=== PATIENT | female | born 1990 | race Two or more races ===

== ENCOUNTER 2025-02-13 11:05 | Emergency (ER) | payer MEDICAID, SELFPAY ==
--- NOTE | 2025-02-13 11:41 | XR_ITS ---
Examination: Complete OB ultrasound, less than 14 weeks, transabdominal Date and time of exam: February 13, 2025 1216 hours INDICATIONS: Vaginal bleeding today, pelvic cramping today Technique: Obstetrical ultrasound images less than 14 weeks performed via transabdominal imaging Findings: A normal shaped single intrauterine gestation is present in the uterus. pole 3.9 cm corresponds to 10 week 6 day gestational age Cardiac motion 164 BPM Ultrasonographic survey of visible and placental structures unremarkable. Amniotic fluid volume appears appropriate for this estimated gestational age. Right ovary 3.3 cm arterial flow Left ovary obscured by bowel gas IMPRESSION: Viable intrauterine gestation 10 weeks 6 days.
--- NOTE | 2025-02-13 11:41 | PD.EDRME ---
Rapid Medical Screening Exam RME Arrival date/time: 02/13/25 11:05 34-year-old female approximately weeks presents emergency department today for complaints of pelvic pain Chief Complaint: OB/Uterine Contractions Time Seen by Provider: 02/13/25 11:41
[2025-02-13 11:43] VITALS: BP 126/82; PULSE 76; RESP 18; TEMP 37.1; O2SAT 98
[2025-02-13 12:21] LABS: Basophils % (Auto) 0 % (0-2.5); Eosinophils # (Auto) 0.1 Thou/mm3 (0.0-0.5); Eosinophils % (Auto) 1 % (0-10); Hematocrit 38.7 % (36.0-46.0); Hemoglobin 13.5 g/dL (12.0-16.0); Immature Granulocytes % (Auto) 0 % (0-0); Immature Granulocytes Auto 0.02 Thou/mm3 (0.00-0.00); Lymphocytes # (Auto) 1.6 Thou/mm3 (1.0-4.8); Lymphocytes % (Auto) 19 % (10-50); Mean Corpuscular HGB Conc 34.9 g/dl (31.0-37.0); Mean Corpuscular Hemoglobin 30.7 pg (25.0-35.0); Mean Corpuscular Volume 88 fL (80-100); Monocytes # (Auto) 0.5 Thou/mm3 (0.0-0.8); Monocytes % (Auto) 6 % (0-12); Neutrophils # (Auto) 6.3 Thou/mm3 (1.8-7.7); Neutrophils % (Auto) 73 % (37-80); Nucleated Red Blood Cell % 0 /100 WBC (0); Platelet Count 253 Thou/mm3 (140-440); RDW Standard Deviation 40.8 fL (36.4-46.3); White Blood Count 8.6 Thou/mm3 (3.6-11.0)
[2025-02-13 12:42] LABS: Alanine Aminotransferase 10 U/L (10-49); Albumin, Serum 4.4 gm/dL (3.5-5.0); Albumin/Globulin Ratio 1.6 (1.2-2.2); Alkaline Phosphatase 83 U/L (46-116); Anion Gap 10 (7-16); Aspartate Amino Transferase 15 U/L (0-34); BUN/Creatinine Ratio 16 Ratio (12-20); Bilirubin,Total 0.5 mg/dL (0.3-1.2); Blood Urea Nitrogen 11 mg/dL (9-23); Calcium 9.5 mg/dL (8.3-10.6); Calcium (Corrected) 9.5 mg/dL (8.5-10.1); Carbon Dioxide 23.7 mMol/L (20.0-31.0); Chloride 103 mMol/L (98-107); Creatinine (Component) 0.7 mg/dL (0.6-1.3); Globulin 2.7 gm/dL (2.3-3.5); Glucose 85 mg/dL (74-106); Osmolality,Calculated 272 (275-295); Potassium 3.5 mMol/L (3.4-5.1); Sodium 137 mMol/L (136-145); Total Protein 7.1 gm/dL (5.7-8.2); eGFR > 60 See Note
[2025-02-13 12:45] LABS: Collection Type, Urine Clean Catch
[2025-02-13 13:03] LABS: Bacteria,Urine Rare; Bilirubin,Urine Negative (Negative); Blood,Urine 1+ (Negative); Budding Yeast,Urine Present; Clarity,Urine Clear (Clear/Hazy); Color,Urine Yellow (Lt Yel-Yel); Glucose, Urine 2+ (Negative); Ketones,Urine Negative (Negative); Leukocyte Esterase,Urine Negative (Negative); Nitrite,Urine Negative (Negative); PH,Urine 6.5 (5.0-7.0); Protein,Urine Trace (Neg - Trace); RBC,Urine 13 /hpf (0-3); Specific Gravity,Urine 1.027 (1.001-1.035); Squamous Epithelial Cell,Urine 4 /hpf (0-5); Urobilinogen,Urine Negative mg/dL (0.0-1.0); WBC,Urine 2 /hpf (0-5)
[2025-02-13 13:19] LABS: Beta HCG,Quantitative 79774 mIU/mL (<5.0)
[2025-02-13 19:39] VITALS: BP 125/75; PULSE 70; RESP 16; TEMP 36.9; O2SAT 99
--- NOTE | 2025-02-13 19:52 | PD.EDPREG ---
ED OB Contraction Preg RMI/HPI General Chief complaint: OB/Uterine Contractions Stated complaint: PREG 11 WKS, SPOTTING/CRAMPING STARTED LAST NIGHT Time Seen by Provider: 02/13/25 11:41 Arrival date/time: 02/13/25 11:05 RME / HPI RME / HPI Narrative: 02/13/25 11:05 34-year-old female approximately weeks presents emergency department today for complaints of pelvic pain ------- Dr. Liang?s Main ED Evaluation: 34yo female who is ~11 weeks gestation presents to the ED for complaints of lower abdominal pain and vaginal spotting. Patient states she started having mild vaginal spotting and lower abdominal cramping yesterday. She reports associated sweating, lightheadedness, and blurry vision and was concerned, so she came in for evaluation. Patient denies any fever, chills or any other associated symptoms. Patient has her first appointment with her OB on 02/27/25. Related Data Home Medications ?Medication ?Instructions ?Recorded ?Confirmed prenat.vits,paul,[id number] 1 tab PO QDAY 12/14/22 12/14/22 Previous Rx's ?Medication ?Instructions ?Recorded acetaminophen 500 mg capsule 1,000 mg (2 x 500 mg) PO Q6H PRN 02/13/25 pain #30 caps Allergies Allergy/AdvReac Type Severity Reaction Status Date / Time No Known Allergies Allergy Verified 02/13/25 11:09 Review of Systems Review of Systems Systems Reviewed: All systems reviewed, normal except as documented Past Medical History Past Medical History NEUROLOGIC: Negative Neurological Disorders CARDIAC: Negative Cardiac Disorders, Myocardial Infarction, Cardiac Arrhythmia, Atrial Fibrillation, Angina, Heart Murmur, Coronary Artery Disease, Atherosclerotic Heart Disease, Peripheral Vascular Disease, Hypercholesterolemia, Aneurysm, Congestive Heart Failure, Congenital Heart Disease, Valvular Heart Disease, Rheumatic Fever, Cardiomyopathy, Edema, Pericarditis, Cellulitis, Deep Vein Thrombosis, Hypertension, Hypotension or Varicose Veins RESPIRATORY: Negative Chronic Obstructive Pulmonary Disease (COPD) GASTROINTESTINAL: Negative Gastrointestinal Disorders or Hepatitis GENITOURINARY: Negative Genitourinary Disorders or Renal Disease REPRODUCTIVE: Negative Pelvic Inflammatory Disease MUSCULOSKELETAL: Negative Musculoskeletal Disorders ENDOCRINE: Negative Endocrine Disorders, Diabetes Mellitus Type 1, Diabetes Mellitus Type 2, Ria's Syndrome, Colmesneil's Disease or Adrenal Disease HEMATOLOGIC: Negative Blood Disorders OTHER HISTORY: Negative Autoimmune Disease, Anesthesia Reactions, Organ Transplant, MRSA, VRSA, Vancomycin-Resistant Enterococci, Human Immunodeficiency Virus (HIV), Chicken Pox, Measles, Mumps, Rubella (Bengali Measles), Pertussis, Clostridium Difficile or Cancer Family History FAMILY HISTORY: Negative Family Psychiatric Problems, Family Respiratory Disorders, Family Cardiac Disorders, Family Gastrointestinal Problems, Family Cancer, Family Surgery or Family Anesthesia Reaction Surgical History SURGICAL: Negative Cardiac Surgery, Pacemaker, Endocrine Surgery, Ear Surgery, Abdominal Surgery, Nephrectomy, Joint Replacement, Neurologic Surgery, Mastectomy, Section or Organ Transplant Social History SMOKING STATUS: Never smoker SECOND HAND EXPOSURE: No ED Exam Narrative Physical exam: GENERAL APPEARANCE: alert and oriented x 4, well-developed, well-nourished, no acute distress VITALS: All vitals were reviewed and the pulse ox is 99% on room air, which is normal according to my interpretation. HEENT: Normocephalic, atraumatic; pupils equal, round, reactive to light; EOMI; mucous membranes pink, moist; oropharynx clear NECK: Supple LUNGS: CTABL; no wheezes, no rales, no rhonchi HEART: Regular rate, regular rhythm; normal S1, S2; no murmurs ABDOMEN: non distended; normal BS; soft, no tenderness, no guarding, no rebound; no masses, no organomegaly, no hernia BACK: no CVA tenderness EXTREMITIES: atraumatic; no edema NEUROLOGIC: awake; alert and oriented x4; cranial nerves II-XII grossly intact; no focal sensory or motor deficits PSYCHIATRIC: appropriate mood and affect SKIN: warm, dry, normal color; no rashes Course Quality Measures none Orders Category Date Time Status US OB <= 14 weeks fetus Stat Exams 02/13/25 11:41 Completed ABO/RH Type Stat Lab 02/13/25 11:52 Completed Beta HCG,Quantitative Stat Lab 02/13/25 11:52 Completed CBC Stat Lab 02/13/25 11:52 Completed Comprehensive Metabolic Panel Stat Lab 02/13/25 11:52 Completed UA [Urinalysis] Stat Lab 02/13/25 12:37 Completed Urine Culture Stat Lab 02/13/25 12:37 Received Vital Signs Vital signs: Vital Signs Temperature 98.8 F 02/13/25 11:43 Pulse Rate 76 02/13/25 11:43 Respiratory Rate 18 02/13/25 11:43 Blood Pressure 126/82 02/13/25 11:43 Pulse Oximetry (%) 98 02/13/25 11:43 Oxygen Delivery Method Room Air 02/13/25 11:43 OB/Uterine Contractions MDM Narrative MDM Narrative:: Scribe Attestation: 02/13/25 - Chanda Joshua am scribing for and in the presence of Dr. Liang. Patient data External records reviewed:: [facility] previous records (Per chart review, patient has no relevant previous ED visits.) Clinical information provided by:: patient Social determinants that could affect healthcare access:: none Patient has the following chronic illnesses:: none How is presenting disease/condition affected by chronic disease/condition?: no chronic disease Evaluation data The following diagnostics were reviewed and interpreted by me:: lab results and radiology exam(s) Lab and/or radiology exams considered but not ordered:: none Interpretation Summary: CBC is normal, CMP is normal, UA shows 2+ glucose and 1+ [place] [address], according to my interpretation. -------- [facility] Report Signed Patient: [facility]. Record#: [id number] Birthdate: 1990 Age/Sex: 34 / F Location: [facility] Attending Dr: Ordering Physician: Chanda GATES)Pa NP Date of Service: 02/13/25 Procedure(s): US OB <= 14 weeks fetus Accession Number(s): [id number] cc: Chanda GATES),Pa KINCAID; Jeyson Miller MD; NO PRIMARY/FAMILY,PHYSICIAN~ Examination: Complete OB ultrasound, less than 14 weeks, transabdominal Date and time of exam: February 13, 2025 1216 hours INDICATIONS: Vaginal bleeding today, pelvic cramping today Technique: Obstetrical ultrasound images less than 14 weeks performed via transabdominal imaging Findings: A normal shaped single intrauterine gestation is present in the uterus. pole 3.9 cm corresponds to 10 week 6 day gestational age Cardiac motion 164 BPM Ultrasonographic survey of visible and placental structures unremarkable. Amniotic fluid volume appears appropriate for this estimated gestational age. Right ovary 3.3 cm arterial flow Left ovary obscured by bowel gas IMPRESSION: Viable intrauterine gestation 10 weeks 6 days. Dictated By: Jeyson Miller MD Signed By: <Electronically signed by Jeyson Miller MD in OV> 04/21/25 1310 Medications / Prescriptions Medications or Prescriptions considered but not ordered:: none Medication administrations:: none Consultations Consultation(s) initiated? (list below): No Diagnosis OB Contractions Differential Diagnosis: other (bleeding in first trimester of , threatened miscarriage, incomplete miscarriage) Most likely diagnosis given after review of the tests above:: see clinical impression below Admission Indicated Admission indicated?: not indicated Explain why admission is indicated or not indicated:: No criteria for admission. Admission Request Was there a request for admission?: No Disposition Plan Disposition Plan: Discharge Discharge Attestation Discharge Attestation: The patient and all family members were given an opportunity to ask questions and understood the discharge instructions. Discharge instructions specifically effects, indications for sooner follow up or return to the emergency department, and the expected course of current diagnosis. Patient condition: Stable Discharge Plan Plan Patient Disposition: HOME (Self Care) Disposition Comment: Stable for discharge home Patient condition on transfer: Stable Prescriptions/Referrals Prescriptions/Med Rec: New acetaminophen 500 mg capsule 1,000 mg PO Q6H PRN (Reason: pain) Qty: 30 0RF No Action Vitamin Tablet 1 tab PO QDAY Referrals: Family [facility] [Provider Group] - In 1 week Problem List Clinical Impression: Threatened Patient/Caregiver Discharge Instructions Discharge Activity: activity as tolerated Education Materials: Understanding Miscarriage ..., ED Possible Miscarriage ... Additional Instructions: Please return to the emergency department if you have any worsening or any further medical problems and we will help you. Otherwise you should follow-up with your primary care doctor within the next several days Please keep your appointment with your primary OB on February 27. Print Language: Thai Stand Alone Forms: [facility]ri Award Info., Patient Portal Info Letter
== END 2025-02-13 20:18 | disposition home or self-care (01) ==
PROVIDERS: Nurse Practitioner Primary Care; Emergency Provider Emergency Medicine
DX: O20.0 Threatened abortion (principal); Z3A.11 11 weeks gestation of pregnancy
CPT/HCPCS: 36415; 76801; 80053; 81001; 84702; 85025; 86900; 86901; 87086; 99284

== ENCOUNTER 2025-06-21 10:46 | Outpatient (CLI) | payer MEDICAID, SELFPAY ==
[2025-06-21 10:50] VITALS: BP 111/62; PULSE 80; RESP 18; RESP 99; TEMP 36.7; BMI 29.6
[2025-06-21 10:52] VITALS: BP 111/62; PULSE 80
[2025-06-21] MEDS: BETAMET ACET/BETAMET NA PH (Celestone) 6 MG/ML VIAL 12 MG IM (11:38)
== END 2025-06-21 11:45 | disposition home or self-care (01) ==
LOC: S4S1 10:47 → S4SX 10:48
PROVIDERS: Referring Provider Obstetrics & Gynecology; Visit Provider Obstetrics & Gynecology
DX: Z34.83 Encounter for supervision of other normal pregnancy, third trimester (principal); Z3A.29 29 weeks gestation of pregnancy
CPT/HCPCS: 59025; 96372; J0702

== ENCOUNTER 2025-06-22 12:08 | Outpatient (CLI) | payer SELFPAY ==
[2025-06-22 12:12] VITALS: BP 113/62; PULSE 74; RESP 16; RESP 98; TEMP 36.9; O2SAT 98; BMI 29.2
[2025-06-22] MEDS: BETAMET ACET/BETAMET NA PH (Celestone) 6 MG/ML VIAL 12 MG IM (13:11)
== END 2025-06-22 13:14 | disposition home or self-care (01) ==
LOC: S4S1 12:08 → S4SX 12:09
PROVIDERS: Referring Provider Obstetrics & Gynecology; Visit Provider Obstetrics & Gynecology
DX: Z34.83 Encounter for supervision of other normal pregnancy, third trimester (principal); Z3A.29 29 weeks gestation of pregnancy
CPT/HCPCS: 59025; 96372; J0702

== ENCOUNTER 2025-08-09 12:28 | Observation (INO) | payer MEDICAID, SELFPAY ==
[2025-08-09 12:35] VITALS: BMI 29.4
[2025-08-09 12:45] VITALS: BP 116/66; PULSE 80
[2025-08-09 12:57] VITALS: BP 116/66; PULSE 80; RESP 16; RESP 97; TEMP 36.7
[2025-08-09] MEDS: NITROFURANTOIN MACRO 100 MG CAPSULE PO (13:44)
== END 2025-08-09 13:50 | disposition home or self-care (01) ==
PROVIDERS: Admitting Provider Specialist; PCP Family Medicine; Visit Provider Specialist
DX: O26.893 Other specified pregnancy related conditions, third trimester (principal); Z3A.36 36 weeks gestation of pregnancy; R10.30 Lower abdominal pain, unspecified
CPT/HCPCS: 59025; 59899; A9270

== ENCOUNTER 2025-08-23 17:25 | Inpatient (IN) | payer MEDICAID, SELFPAY ==
[2025-08-23] VITALS (8 sets, daily range): BP systolic 108–138; BP diastolic 59–76; PULSE 60–75; RESP 18–98; TEMP 36.7; BMI 29.7
[2025-08-23] MEDS: Ampicillin Inj 2,000 MG in SODIUM CHLORIDE 0.9% (POP) 100 ML 200 MG IV (18:36)
[2025-08-23] MEDS: RINGERS LACTATED 1000 ML 1,000 ML 100 ML IV (18:37)
[2025-08-23 18:49] LABS: Basophils # (Auto) 0.0 Thou/mm3 (0.0-0.2); Basophils % (Auto) 0 % (0-2.5); Eosinophils # (Auto) 0.1 Thou/mm3 (0.0-0.5); Eosinophils % (Auto) 1 % (0-10); Hematocrit 39.3 % (36.0-46.0); Hemoglobin 13.4 g/dL (12.0-16.0); Immature Granulocytes Auto 0.03 Thou/mm3 (0.00-0.00); Lymphocytes # (Auto) 1.4 Thou/mm3 (1.0-4.8); Lymphocytes % (Auto) 20 % (10-50); Mean Corpuscular HGB Conc 34.1 g/dl (31.0-37.0); Mean Corpuscular Hemoglobin 31.0 pg (25.0-35.0); Mean Corpuscular Volume 91 fL (80-100); Monocytes # (Auto) 0.3 Thou/mm3 (0.0-0.8); Monocytes % (Auto) 4 % (0-12); Neutrophils # (Auto) 5.0 Thou/mm3 (1.8-7.7); Neutrophils % (Auto) 74 % (37-80); Nucleated Red Blood Cell # 0.00 Thou/mm3 (0.00-0.00); Nucleated Red Blood Cell % 0 /100 WBC (0); Platelet Count 253 Thou/mm3 (140-440); RDW Standard Deviation 44.4 fL (36.4-46.3); Red Blood Count 4.32 Miln/mm3 (4.00-5.20); White Blood Count 6.8 Thou/mm3 (3.6-11.0)
[2025-08-23 19:40] LABS: Syphilis Nonreactive (Nonreactive)
[2025-08-23] MEDS: OXYTOCIN in NS 20 units 20 UNIT/1,000 ML BAG 999 UNIT IV (19:40)
[2025-08-23] MEDS: BENZO/LANO/ALOE (Dermoplast) 60 GM CAN 1 SPRAY TOP (19:52)
--- NOTE | 2025-08-23 19:54 | PD.LDHP ---
Documentation for date of: 08/23/25 OB Labor/Induct. HPI History of Present Illness : 3 Para: 2 Term pregnancies: 2 pregnancies: 0 Living children: 2 History of Abortions: Spontaneous and Elective: 0 History of Vaginal deliveries: 2 History of sections: No History of : No ANGEL: 09/03/25 Gestational Age (weeks): 38 Gestational Age (days): 3 History of present illness: H and P dictated in Nuance on STAT line #9: [id number] History of Present Adequate Care: Yes Labs Labs: Positive: Group Beta Strep, Negative: RPR, Hepatitis B, Rubella Titre, HIV, Chlamydia and Gonorrhea and Unknown: Herpes Type 1, Herpes Type 2 and Covid-19 Past Medical History Surgical History SURGICAL: Negative Section Meds Home Medications and Allergies Home Medications ?Medication ?Instructions ?Recorded ?Confirmed ?Type prenat.vits,paul,pfs-rhnj-ruuaq 1 tab PO QDAY 12/14/22 08/23/25 History cephalexin 500 mg capsule 500 mg PO BID 08/22/25 08/23/25 History Allergies Allergy/AdvReac Type Severity Reaction Status Date / Time No Known Allergies Allergy Verified 08/23/25 19:05 OB Exam Physical Exam Vital signs: Temp Pulse Resp BP 98.0 F 68 18 138/76 H 08/23/25 17:32 08/23/25 19:52 08/23/25 17:32 08/23/25 19:52 OB Results Labs 08/23/25 18:32 Labs: Short CBC 08/23/25 Range/Units 18:32 WBC 6.8 D (3.6-11.0) Thou/mm3 Hgb 13.4 (12.0-16.0) g/dL Hct 39.3 (36.0-46.0) % Plt Count 253 (140-440) Thou/mm3
--- NOTE | 2025-08-23 19:55 | OBDSUM_ITS ---
Data ([place]) Data Hx Section: No : 3 Term: 2 : 0 Livin Abortions: Spontaneous & Theraputic: 0 Delivery Data ([place]) Labor Data Initiation of labor: Augmentation Induction/Augmentation Agent: Artificial ROM ROM date: 08/23/25 ROM time: 19:27 Amniotic membrane rupture type: Artificial Amniotic fluid description: Clear Delivery Data EDC: 09/03/25 EDC calculated by:: LMP/early US confirmation Onset of labor date: 08/23/25 Onset of labor time: 12:00 Complete dilation date: 08/23/25 Complete dilation time: 19:28 delivery date: 08/23/25 delivery time: 19:33 Gestational age (weeks): 38 Gestational age (days): 3 Placenta delivery date: 08/23/25 Stage 1 total time: Labor - Stage 1 Duration 7 hours and 28 minutes Delivered by: Ronak Lewis Delivery nurse: Bobby Ngo RN [place] nurse: Belen Chong RN, Corina Wilson RN Aircraft Maintenance Supervisor at delivery: No Support person(s) at delivery: Significant other Delivery Method Delivery method: Normal Vaginal Delivery Presentation: Vertex position: OA Anesthesia Type Anesthesia Type: None Placenta Cord blood sent to lab: Yes cord blood collection: Cord Blood Type Episiotomy Episiotomy description: None EBL Estimated blood loss (ml): 100 Umbilical Cord cord description: 3 Vessels Complications Complications: None [place] Data ([place]) Data order: 1 's gender: Male Identification band number: [id number] 1 minute: 9 5 minutes: 9
--- NOTE | 2025-08-23 19:55 | PD.LDDS ---
DS: Providers Provider Date of admission: 08/23/25 18:12 Primary care physician: Physician No Primary/Family Admitting Provider: Ronak Lewis MD Attending Provider on Admission: Ronak Lewis MD Attending Provider on DC: Ronak Lewis MD Discharging Provider: Ronak Lewis MD DS: Diagnosis Problem List Completed Was Problem List Reviewed/Reconciled?: Yes Summary/Hosp Course Brief History: H and P dictated in Nuance on STAT line #9: [id number] Peripartum Data Delivery Method: Normal Vaginal Delivery Episiotomy Description: None Time Spent with Patient Time attestation: Total time spent providing and/or coordinating discharge services: Exam Vital Signs Temp Pulse Resp BP 98.0 F 68 18 138/76 H 08/23/25 17:32 08/23/25 19:52 08/23/25 17:32 08/23/25 19:52 Discharge Plan Plan Patient Disposition: HOME (Self Care) Patient condition on transfer: Stable Prescriptions/Referrals Prescriptions/Med Rec: New ibuprofen 600 mg tablet 600 mg PO Q6H PRN (Reason: pain) Qty: 30 0RF No Action cephalexin 500 mg capsule 500 mg PO BID Patient Comments: TAKE 1 CAPSULE BY MOUTH FOUR TIMES A DAY, Only takes twice a day Vitamin Tablet 1 tab PO QDAY Referrals: No Primary/Family,Physician [Primary Care Provider] Patient/Caregiver Discharge Instructions Discharge Activity: activity as tolerated Other Discharge Activity Instructions:: Follow up office 6 weeks Education Materials: After a Vaginal , Breast Care After , Nutrition While Print Language: Venezuelan Stand Alone Forms: Carri Award Info., Patient Portal Info Letter Discharge Order Discharge Orders: Discharge (Routine); Ordered 08/24/25 Ordered By: Ronak Lewis Planned Discharge Date 08/24/25
--- NOTE | 2025-08-23 19:58 | ESHP_ITS ---
RE: CARMEN ORTA : 1990 DATE OF ADMISSION: 08/23/2025 HISTORY OF PRESENT ILLNESS: This is a 35-year-old 3, para 2-0-0-2 with due date of 09/03 with intrauterine at 38 weeks and 2 days who presents to labor and delivery complaining of contractions and is reported to be 6 cm. Her urinary tract infection earlier in her was due to group B strep; therefore, the patient will begin ampicillin for group B strep prophylaxis. She denies any leaking or bleeding. She reports normal movement. She did have a threatened labor earlier in her where she had a positive fibronectin back on 06/19 and at that time she received betamethasone on 06/21 and 06/22. Otherwise, no significant medical problems in her . ALLERGIES: NO KNOWN DRUG ALLERGIES. MEDICATIONS: multivitamin. PAST MEDICAL HISTORY: Rubella nonimmune. Threatened labor. FAMILY HISTORY: Denies. SOCIAL HISTORY: She denies any alcohol, drug use, or smoking. OBSTETRIC HISTORY: In 2020, 39-week normal vaginal delivery, 6 pounds 13 ounces male, no complications. In 2022, 38-week normal vaginal delivery, 7 pounds 4 ounce male, no complications. PAST SURGICAL HISTORY: Denies. REVIEW OF SYSTEMS: She denies any headache, change of vision, or right upper quadrant pain. She denies any chest pain, palpitations, cough, fever, flank pain, shortness of breath, or lower extremity pain. PHYSICAL EXAMINATION: VITAL SIGNS: Blood pressure 119/59, heart rate 88, respirations 18, temperature 98.6, and weight 161 pounds. HEENT: Oropharynx and sclerae are clear. LUNGS: Clear to auscultation bilaterally. HEART: Regular rate and rhythm. ABDOMEN: Gravid, consistent with estimated weight 7 pounds. PELVIC: See RN notes. EXTREMITIES: Nontender. SKIN: No gross rashes or lesions. NEUROLOGIC: No focal deficit. ASSESSMENT AND PLAN: Intrauterine at 38 weeks and 3 days, active labor, anticipate spontaneous vaginal delivery. Informed consent was obtained. The patient was made aware of the risks, complications, alternatives, and benefits of operative vaginal delivery and delivery and agrees with these modes of delivery if indicated. DT: 18:56:52 TT: 19:57:00 Ref: [id number] - TID: [id number]
[2025-08-23] MEDS: IBUPROFEN TAB 400 MG TABLET 800 MG PO (20:08)
[2025-08-24] VITALS: BP 104/64; PULSE 61; RESP 18; TEMP 36.6; O2SAT 97
[2025-08-24] MEDS: ACETAMINOPHEN 325 MG TABLET 650 MG PO ×2 (00:33→12:27)
[2025-08-24 03:45] VITALS: BP 100/52; PULSE 70; RESP 19; TEMP 36.5; O2SAT 97
[2025-08-24] MEDS: HYDROcodone/APAP 5/325 TABLET 1 TAB PO (04:41)
[2025-08-24] MEDS: IBUPROFEN TAB 400 MG TABLET 800 MG PO (04:41)
[2025-08-24 05:35] LABS: Basophils # (Auto) 0.0 Thou/mm3 (0.0-0.2); Basophils % (Auto) 0 % (0-2.5); Eosinophils # (Auto) 0.2 Thou/mm3 (0.0-0.5); Eosinophils % (Auto) 2 % (0-10); Hematocrit 33.7 % (36.0-46.0); Hemoglobin 11.7 g/dL (12.0-16.0); Immature Granulocytes Auto 0.03 Thou/mm3 (0.00-0.00); Lymphocytes # (Auto) 1.3 Thou/mm3 (1.0-4.8); Lymphocytes % (Auto) 15 % (10-50); Mean Corpuscular HGB Conc 34.7 g/dl (31.0-37.0); Mean Corpuscular Hemoglobin 32.0 pg (25.0-35.0); Mean Corpuscular Volume 92 fL (80-100); Monocytes # (Auto) 0.7 Thou/mm3 (0.0-0.8); Monocytes % (Auto) 8 % (0-12); Neutrophils # (Auto) 6.7 Thou/mm3 (1.8-7.7); Neutrophils % (Auto) 75 % (37-80); Nucleated Red Blood Cell # 0.00 Thou/mm3 (0.00-0.00); Nucleated Red Blood Cell % 0 /100 WBC (0); Platelet Count 217 Thou/mm3 (140-440); RDW Standard Deviation 45.1 fL (36.4-46.3); Red Blood Count 3.66 Miln/mm3 (4.00-5.20); White Blood Count 9.0 Thou/mm3 (3.6-11.0)
--- NOTE | 2025-08-24 06:14 | ESPR_ITS ---
Subjective Subjective Interval history: Patient denies any prior complaint. She is voiding and ambulating and tolerating a regular diet. She denies any excessive vaginal bleeding. She denies any chest pain palpitation shortness of breath or lower extremity pain. Exam Vital Signs Temp Pulse Resp BP Pulse Ox O2 Del Method 97.7 F 70 19 100/52 L 97 Room Air 08/24/25 03:45 08/24/25 03:45 08/24/25 03:45 08/24/25 03:45 08/24/25 03:45 08/24/25 03:45 Routine Respiratory Exam Comments: Clear to auscultation bilaterally Routine Cardiovascular Exam Comments: Regular rate and rhythm Routine Abdominal Exam Comments: Fundus is firm Routine Extremities Exam Comments: Nontender Objective Labs 08/24/25 04:59 Labs: Laboratory Results - last 24 hr 08/23/25 08/24/25 18:32 04:59 WBC 6.8 D 9.0 RBC 4.32 3.66 L Hgb 13.4 11.7 L Hct 39.3 33.7 L MCV 91 92 MCH 31.0 32.0 MCHC 34.1 34.7 RDW Std Deviation 44.4 45.1 Plt Count 253 217 D Neut % (Auto) 74 75 Lymph % (Auto) 20 15 [place] % (Auto) 4 8 Eos % (Auto) 1 2 Baso % (Auto) 0 0 Neut # (Auto) 5.0 6.7 Lymph # (Auto) 1.4 1.3 [place] # (Auto) 0.3 0.7 Eos # (Auto) 0.1 0.2 Baso # (Auto) 0.0 0.0 Immature Gran # (Auto) 0.03 H 0.03 H Absolute Nucleated RBC 0.00 0.00 Immature Gran % 0 0 Nucleated RBC % 0 0 Syphilis Serology Nonreactive Blood Type A Positive Antibody Screen NEGATIVE Blood Bank Wristband ID Yes Impressions Impression: day #1 status post vaginal delivery Discharge home when baby is cleared, follow-up in the office in 6 weeks, discharge instructions given. Assessment & Plan Time Spent With Patient Time: Total time spent is greater than 50% in coordination of care (as documented) at patient's floor/unit and/or counseling patient:
[2025-08-24 07:40] VITALS: BP 99/58; PULSE 61; RESP 16; TEMP 36.5; O2SAT 99
[2025-08-24 11:15] VITALS: BP 107/64; PULSE 65; RESP 17; TEMP 36.6; O2SAT 96
[2025-08-24 15:10] VITALS: BP 112/68; PULSE 68; RESP 18; TEMP 36.6; O2SAT 97
[2025-08-24 19:27] VITALS: BP 102/55; PULSE 64; RESP 19; TEMP 36.8; O2SAT 97
== END 2025-08-24 21:00 | disposition home or self-care (01) | DRG 560 ==
LOC: S4NX 08-24 05:35 → S4SX 08-24 05:35
PROVIDERS: Admitting Provider Specialist; Visit Provider Specialist
DX: O23.43 Unspecified infection of urinary tract in pregnancy, third trimester (principal); Z37.0 Single live birth; Z3A.38 38 weeks gestation of pregnancy
CPT/HCPCS: 36415; 59409; 85025; 86780; 86850; 86900; 86901; J0290; J2590; J7120; A9270